=== PATIENT | female | born 1970 | race Caucasian/White ===

== ENCOUNTER → 2019-06-22 | Outpatient (CLI) | payer OTHER ==
[2019-06-22 12:32] LABS: Albumin 3.7 g/dL (3.4-5.0); BUN/Creatinine Ratio 18.9; Calcium 9.1 mg/dL (8.5-10.1); Potassium 4.3 mmol/L (3.5-5.1)
[2019-06-22 12:35] LABS: Bilirubin, Total 0.4 mg/dL (0.2-1.0); Total Protein 6.9 g/dL (6.4-8.2)
[2019-06-22 12:41] LABS: Follicle Stimulating Hormone 68.28 IU/L (SEE BELOW); Leuteinizing Hormone 23.5 IU/L
== END | disposition home or self-care (01) ==
LOC: LAB 11:16
PROVIDERS: ATTEND Specialist
DX: N90.1 Moderate vulvar dysplasia (principal)
CPT/HCPCS: 36415; 80053; 82670; 83001; 83002; 84403; 84443

== ENCOUNTER 2019-11-27 12:16 | Emergency (ER) | payer OTHER | END 2019-11-27 12:25 | disposition left against medical advice (07) | LOC: ER 12:16 | DX: R20.0 Anesthesia of skin (principal); Z53.21 Procedure and treatment not carried out due to patient leaving prior to being seen by health care provider ==